=== PATIENT | male | born 1950 | race Caucasian/White ===

== ENCOUNTER 2017-06-28 17:39 | Inpatient (IN) | payer BC, MEDICARE ==
[~2017-06-28] VITALS: Ht 180.3 cm; Wt 108.8 kg
[2017-06-28 17:44] VITALS: BP 117/88
[2017-06-28] MEDS ORDERED: AMARYL2 MG PO (17:53)
[2017-06-28] MEDS ORDERED: GLUCOPHAGE XR500 MG PO (17:53)
[2017-06-28] MEDS ORDERED: PRAVACHOL20 MG PO (17:53)
[2017-06-28] MEDS ORDERED: MINOCYCLINE HC100 MG PO (17:54)
[2017-06-28] MEDS ORDERED: LEVEMIR SUBQ (17:54)
[2017-06-28 18:10] LABS: ABSOLUTE BASOPHILS 0.1 thou/uL (0.0-0.2); ABSOLUTE EOSINOPHILS 0.1 thou/uL (0.0-0.7); ABSOLUTE LYMPHOCYTES 4.1 thou/uL (0.8-5.3); ABSOLUTE MONOCYTES 0.6 thou/uL (0.0-1.2); BASOPHILS 0.9 %; EOSINOPHILS 1.4 %; HEMATOCRIT 43.8 % (42.0-52.0); HEMOGLOBIN 14.9 gm/dL (14.0-18.0); LYMPHOCYTES 41.5 %; MCH 30.8 pg (26.0-34.0); MCV 90.5 fL (80.0-100.0); MONOCYTES 6.3 %; MPV 8.3 fl. (7.2-11.1); NUCLEATED RBCS 0 /100WBC; PLATELET COUNT* 220 thou/uL (150-400); POLYS 49.9 %; RBC 4.84 mil/uL (4.50-6.00); RDW-CV 13.9 % (10.5-14.5)
[2017-06-28 18:19] LABS: APTT 27.9 Seconds (25.0-31.3); PROTIME 10.2 Seconds (9.20-11.50)
[2017-06-28 18:23] LABS: CALCIUM 9.5 mg/dL (8.5-10.1); CREATININE 0.9 mg/dL (0.6-1.3)
[2017-06-28 18:43] LABS: TOTAL BILIRUBIN 0.7 mg/dL (<0.1-1.0)
[2017-06-28 18:44] LABS: TOTAL PROTEIN 8.1 g/dL (6.4-8.2)
[2017-06-28 18:59] LABS: TROPONIN-I LEVEL 0.11 ng/mL (<0.06)
[2017-06-28 19:04] LABS: CK-MB MASS 1.2 ng/mL (<0.5-3.6)
[2017-06-28 19:57] VITALS: BP 112/73
[2017-06-28 20:30] VITALS: BP 131/74
[2017-06-28 23:56] LABS: URINE BILIRUBIN NEGATIVE (Negative); URINE BLOOD NEGATIVE (Negative); URINE CLARITY CLEAR; URINE COLOR YELLOW; URINE GLUCOSE-RANDOM 2+ (Negative); URINE KETONES NEGATIVE (Negative); URINE LEUKOCYTES-REFLEX NEGATIVE (Negative); URINE NITRITE-REFLEX NEGATIVE (Negative); URINE PROTEIN NEGATIVE (Negative); URINE SPECIFIC GRAVITY 1.015 (1.005-1.030); URINE UROBILINOGEN 0.2 E.U./dl (0.2-1.0)
[2017-06-29] VITALS: BP 111/60
--- NOTE | 2017-06-29 03:16 | NUR ---
RECEIVED REPORT FROM ADOPTION SERVICES MANAGER, JAMIE AT 1948. PT ARRIVED VIA GURNEY AT 2015. PT AAOX4, SPOUSE AT BEDSIDE, PT ORIENTED TO ROOM AND CALL LIGHT. NIH SCORE 0. PASSED BEDSIDE SWALLOW STUDY. NURSING ASSESSMENT COMPLETED, PRN ACETAMINOPHEN ADMINISTERED X1 FOR HEADACHE. PT WEARING SCD'S, TELE MONITOR ON, TRACING SINUS RHYTHM/SINUS TACHY IN THE LOW 90'S TO LOW 100'S. VOICED NO CONCERNS THIS SHIFT. BED ALARM ON FOR PATIENT SAFETY, CALL LIGHT WITHIN REACH.
[2017-06-29 04:00] VITALS: BP 106/61
[2017-06-29 05:39] LABS: ABSOLUTE BASOPHILS 0.1 thou/uL (0.0-0.2); ABSOLUTE EOSINOPHILS 0.1 thou/uL (0.0-0.7); ABSOLUTE LYMPHOCYTES 2.9 thou/uL (0.8-5.3); ABSOLUTE MONOCYTES 0.6 thou/uL (0.0-1.2); ABSOLUTE NEUTROPHILS 3.3 thou/uL (1.6-8.1); BASOPHILS 1.2 %; EOSINOPHILS 1.3 %; HEMATOCRIT 41.1 % (42.0-52.0); HEMOGLOBIN 13.7 gm/dL (14.0-18.0); LYMPHOCYTES 41.3 %; MCH 30.4 pg (26.0-34.0); MCHC 33.3 g/dL (28.0-37.0); MCV 91.2 fL (80.0-100.0); MONOCYTES 9.1 %; MPV 8.3 fl. (7.2-11.1); NUCLEATED RBCS 0 /100WBC; PLATELET COUNT* 201 thou/uL (150-400); POLYS 47.1 %; RDW-CV 14.2 % (10.5-14.5)
[2017-06-29 05:58] LABS: CALCIUM 9.1 mg/dL (8.5-10.1); POTASSIUM 4.1 mmol/L (3.5-5.1)
[2017-06-29 06:15] LABS: CHOLESTEROL 143 mg/dL (<200); HDL CHOLESTEROL 28 mg/dL (>40); LDL CHOLESTEROL 88 mg/dL (<100); SERUM ASSESSMENT Clear; TC:HDL 5.1 Ratio (Not establshd); TRIGLYCERIDE 136 mg/dL (<150); VLDL 27 mg/dL (<40)
[2017-06-29 08:07] VITALS: BP 119/74
--- NOTE | 2017-06-29 09:38 | EKG ---
[place] [address] ELECTROCARDIOGRAM REPORT Name: Timothy KOWALSKI Room: [place] [address] ADM IN .R.#: [id number] Admission: 06/28/17 Attend Phys: Fady Toledo MD Discharge: Date of : 52 Report #: [id number] THIS REPORT FOR: //name// [facility] ED Test Date: 2017-06-28 Test Time: 18:26:46 Pat Name: Timothy KOWALSKI Department: Room: [facility] Gender: Die Fitter: ASHLEY Winslow : 1950 Requested By: Markie Snowden Order Number: [id number] MD: Real Bustillos Measurements Intervals [place] Rate: 107 P: 58 VT: 139 QRS: -11 QRSD: 110 T: 58 QT: 346 QTc: 462 Interpretive Statements Sinus tachycardia RSR' in V1 or V2, right VCD or RVH Baseline wander in lead(s) III,V2 No previous ECG available for comparison Electronically Signed On 06-29-2017 9:37:53 CDT by Real Bustillos [email or web address] <ELECTRONICALLY SIGNED> By: Real Bustillos MD, FAC 06/29/17 0937 1826 1826 Real Bustillos MD, [facility] /EPI
--- NOTE | 2017-06-29 10:07 | NUR ---
ASSUMED CARE OF PT AT 0735. PT CONTINUES TO BE A&O X4 CALM AND COOPERATIVE. PT DENIES ANY C/O PAIN OR DISTRESS, VSS ON ROOM AIR. PT UP WITH SBA AND HIS GAIT IS STABLE WITHOUT ASSISTIVE DEVICES. PT ATE BREAKFAST WITHOUT ISSUE, CONSUMING GREATER THAN 90% OF THE MEAL. PT HAS BEEN TRACING NSR ON THE MONITOR. PT CURRENTLY OFF THE UNIT FOR IMAGING. NURSING WILL CONTINUE TO MONITOR.
--- NOTE | 2017-06-29 10:45 | NUR ---
REPORT GIVEN ASSUMED PATIENT CARE
--- NOTE | 2017-06-29 11:15 | NUR ---
MET WITH PT TO DISCUSS HOME SITUATION/DC PLANNING. PT LIVES WITH . HE IS NORMALLY INDEPENDENT AND ACTIVE. USES NO EQUIPMENT AND HASN'T HAD HH. HE STATES HE WATCHES HIS 3 GRANDCHILDREN AND DRIVES ONE TO PRESCHOOL. PT IS DIABETIC AND TAKES INSULIN BUT ADMITS NOT CHECKING HIS FSBG REGULARLY. STATES HE HAS A FAIRLY NEW METER BUT DOESN'T USE IT. HE PLANS TO START. OFFERED SOME UPDATED EDUCATION AND PT WAS OPEN TO THAT. ASKED ERIC HARRINGTON TO PROVIDE. PT PLANS TO RETURN HOME AT [place]. DENIES OTHER NEEDS. HAS AN APPT WITH A NEW UPHOLSTERER APPRENTICE AT [facility] COMING UP. ENCOURAGED HIM TO CHECK FSBG AND KEEP RECORD TO TAKE WITH HIM TO APPT.
[2017-06-29 11:45] VITALS: BP 121/65
[2017-06-29 15:29] VITALS: BP 111/72
--- NOTE | 2017-06-29 16:20 | 2DMMODE ---
[place] [address] 2 D/M-MODE ECHOCARDIOGRAM Name: GABRIELLE KOWALSKI Room: [facility] ADM IN [facility]#: [id number] Admission: 06/28/17 Attend Phys: Fady Toledo, Discharge: Date of : 52 Date of Service: 06/29/17 1620 Report #: [id number] THIS REPORT FOR: //name// APPROVED REPORT Study performed: 06/29/2017 15:01:26 EXAM: Comprehensive 2D, Doppler, and color-flow Echocardiogram Patient Location: In-Patient Room #: [facility] Status: routine BSA: 2.34 HR: 93 bpm BP: 106/61 mmHg Rhythm: NSR Other Information Study Quality: Good Indications CVA/TIA Echo Enhancing Agent Indication: Rule out Shunt Agent(s) / Amount(s) Used: Agitated Saline 10 cc 2D Dimensions LVEF(%): 47.06 (>50%) IVSd: 10.86 (7-11mm) LVOT Diam: 20.58 (18-24mm) LVDd: 43.66 mm PWd: 11.58 (7-11mm) Ascending Ao: 30.73 (22-36mm) LVDs: 33.44 (25-40mm) Aortic Root: 33.56 mm Feliz's LVEF: 47.06 % Volumes Left Atrial Volume (Systole) LA ESV Index: 17.20 mL/m2 Aortic Valve AoV Peak Mookie.: 1.63 m/s AO Peak Gr.: 10.57 mmHg LVOT Max P.56 mmHg AO Mean Gr.: 5.61 mmHg LVOT Mean P.82 mmHg LVOT Max V: 0.94 m/s AO V2 VTI: 25.54 cm LVOT Mean V: 0.62 m/[place] [address] 2 D/M-MODE ECHOCARDIOGRAM Name: GABRIELLE KOWALSKI Room: [place] [address] ADM IN .R.#: [id number] Admission: 06/28/17 Attend Phys: Fady Toledo, Discharge: Date of : 52 Date of Service: 06/29/17 1620 Report #: [id number] MAYRA (VTI): 2.35 cm2 LVOT V1 VTI: 18.01 cm Mitral Valve E/A Ratio: 0.77 MV Decel. Time: 205.12 ms MV E Max Mookie.: 0.69 m/s MV PHT: 59.49 ms MVA (PHT): 3.70 cm2 TDI E/Lateral E': 6.27 E/Medial E': 5.75 Medial E' Mookie.: 0.12 m/s Lateral E' Mookie.: 0.11 m/s Pulmonary Valve PV Peak Mookie.: 1.67 m/s PV Peak Gr.: 11.13 mmHg Left Ventricle The left ventricle is normal size. There is normal LV segmental wall motion. There is normal left ventricular wall thickness. Left ventricular systolic function is normal. The left ventricular ejection fraction is within the normal range. No left ventricle thrombus noted on this study. LVEF is 55-60%. Grade I - abnormal relaxation pattern. Right Ventricle The right ventricle is normal size. The right ventricular systolic function is normal. Atria The left atrium size is normal. Interatrial septum is intact without evidence of ASD or PFO.Negative bubble study. The right atrium size is normal. Aortic Valve The aortic valve is normal in structure. No aortic regurgitation is present. There is no aortic valvular stenosis. Mitral Valve The mitral valve is normal in structure. There is no mitral valve regurgitation noted. No evidence of mitral valve stenosis. Tricuspid Valve The tricuspid valve is normal in structure. There is no tricuspid valve reg[place] [address] 2 D/M-MODE ECHOCARDIOGRAM Name: GABRIELLE KOWALSKI Room: [place] [address] ADM IN M.R.#: [id number] Admission: 06/28/17 Attend Phys: Fady Toledo, Discharge: Date of : 52 Date of Service: 06/29/17 1620 Report #: [id number] Pulmonic Valve The pulmonary valve is normal in structure. There is no pulmonic valvular regurgitation. Great Vessels The aortic root is normal in size. IVC is normal in size and collapses with >50% inspiration Pericardium There is no pericardial effusion. <Conclusion> LVEF is 55-60%. Grade I - abnormal relaxation pattern. There is normal LV segmental wall motion. Interatrial septum is intact without evidence of ASD or PFO.Negative bubble study. No left ventricle thrombus noted on this study. There is no aortic valvular stenosis. No aortic regurgitation is present. No evidence of mitral valve stenosis. There is no mitral valve regurgitation noted. <ELECTRONICALLY SIGNED> By: Alek Luther MD, FACC 06/29/171619 19 19 Alek Luther MD, FACC /INF
--- NOTE | 2017-06-29 19:49 | NUR ---
PATIENT SITTING UP IN CHAIR WATCHING TV REMAINS A AND O X 4 SR RA GOOD APPETITE LAST BM REPORTED T-1 UP WITH STANDBY IV R AC SL NO C/O PAIN NIHH Q4H 0 ACCUCHECKS 196, 251, 192 NEURO CONS CALL LIGHT IN REACH AND INSTRUCTION GIVEN AND FOLLOWED
[2017-06-29 20:00] VITALS: BP 126/78
[2017-06-30] VITALS: BP 116/76
[2017-06-30 02:11] LABS: GLYCOHEMOGLOBIN (HGB A1C) 8.3 % (4.8-5.6)
[2017-06-30 04:00] VITALS: BP 118/72
--- NOTE | 2017-06-30 06:06 | NUR ---
ASSUMED CARE OF PT AT 1930, PT VOICED NO CONCERNS THIS SHIFT, NO EPISODES OF CONFUSION THIS SHIFT, AAOX4, PT TRACING SINUS RHYTHM THIS SHIFT, HOURLY ROUNDING COMPLETED, CALL LIGHT WITHIN REACH. FALL PRECAUTIONS IN PLACE. PT ASSISSTED WITH SHOWER THIS SHIFT, AMBULATED HALLWAY WITH NO SOA. CALL LIGHT WITHIN REACH.
[2017-06-30 07:58] VITALS: BP 129/70
--- NOTE | 2017-06-30 10:22 | NUR ---
ASSUMED CARE OF PT AT 0730. PT SITTING UP IN THE CHAIR WAITING FOR BREAKFAST. PT ALREADY TOOK SHOWER AND AMBULATED IN HALLWAY THIS AM. PT A&0X4. DENIES ANY PAIN OR SHORTNESS OF BREATH AT THIS TIME. NIH COMPLETED. PT SCORING 0. REFER TO CHARTING. PT TRACING SR ON THE BATT MACHINE OPERATOR. ON RA SAT UPPER 90'S. PT UP SBA TO BATHROOM. AT BEDSIDE. PT GIVEN EDUCATION REGARDING DIABETIC TEACHING, USE OF GLUCOSE MONITOR AND INSULIN INJECTIONS. PT GOAL FOR TODAY IS TO INCREASE ACTIVITY AND POSSIBLE DISCHARGE HOME THIS AFTERNOON. AM ASSESSMENT CHARTED. MEDICATIONS PER JUN. PT REPOSITIONS SELF. HOURLY ROUNDING OBSERVED. BED IN LOW POSITION. CALL LIGHT WITHIN REACH. WILL CONTINUE PLAN OF CARE.
[2017-06-30 11:30] VITALS: BP 114/72
[2017-06-30 12:01] VITALS: BP 129/70
[2017-06-30] MEDS ORDERED: ASPIRIN325 PO (12:47)
--- NOTE | 2017-06-30 14:20 | NUR ---
DISCHARGE ORDERS RECEIVED. DISCHARGE INSTRUCTIONS, CARE NOTES AND FOLLOW UP APPTS GIVEN TO PT. PT COMMUNICATES UNDERSTANDING OF DISCHARGE TEACHING. IV AND MOLD SANDER REMOVED. PT DISCHARGED WITH ALL BELONGINGS AND PAPERWORK VIA WHEELCHAIR WITH [employer] TO SPOUSE OWN PERSONAL VEHICLE.
--- NOTE | 2017-07-06 19:10 | CON ---
[address] [address] CONSULTATION Name: GABRIELLE KOWALSKI Room: [address] IN M.R.#: [id number] Admission: 06/28/17 Attend Phys: Fady Toledo MD Discharge: 06/30/17 Date of : 52 Report #: [id number] THIS REPORT FOR: //name// CC: Fady Hadley DATE OF SERVICE: 06/29/2017 HISTORY OF PRESENT ILLNESS: This is a 67-year-old male patient who was evaluated by me for a few episodes where he does not know what he is telling and he becomes confused. Sometime he has made wrong statements and the other time; he did not know how to check his blood sugar. Episodes come spontaneously without any trauma and his confusion is severe during this episode. He has no associated headache with it. He has not checked his blood sugar during these episodes and he does not know what his blood sugar is, but after it is over, it is about 160. REVIEW OF SYSTEMS: Positive for diabetes, gallbladder surgery in the past. Presently, he is not having any new eye, ENT, cardiac, respiratory, GI, , musculoskeletal, constitutional, dermatological, hematological, psychiatric, throat, allergy symptoms. He does have baseline diabetes. PAST MEDICAL HISTORY: Negative for stroke or this kind of symptom. FAMILY HISTORY: Negative for early age stroke. SOCIAL HISTORY: He does not drink any alcohol, but does have a history of smoking. PHYSICAL EXAMINATION: Indicate he is alert, responsive, oriented. His speech, concentration, fund of knowledge and memory is at his baseline. Cranial nerve examination 212 is unremarkable. His strength, sensation, reflexes and tone is symmetrical in all 4 extremities. He has no cerebellar sign or papilledema. He is reasonably well-developed individual who does not have any dysmorphic features of eyes, ears and face. His vision and hearing looks adequate. He has no thyroid mass. He has no edema, cyanosis or jaundice. His pulses are somewhat difficult to feel. His cardiac examination showed unremarkable heart sounds and rhythm. No respiratory difficulty or rhonchi on either side. Blood pressure is 106/61, respirations 18, pulse is 94, temperature is 97.4. LABORATORY DATA: His white count is 7. His sodium is normal and his troponin was trace high. His LDL is 88. He has started taking baby aspirin recently. He did have a CT scan of the head. He is scheduled to have an MRI of the brain, MRA of the head and neck. IMPRESSION: It is not clear what the etiology of his symptoms [place] [address] CONSULTATION Name: GABRIELLE KOWALSKI Room: [address] IN M.R.#: [id number] Admission: 06/28/17 Attend Phys: Fady Toledo MD Discharge: 06/30/17 Date of : 52 Report #: [id number] to check his blood sugar the next time this happened to make sure he does not have any hypo or hyperglycemia. I would like to exclude the possibility of TIAs or ischemic disease in this patient. Seizures are unlikely, but will do an EEG to exclude that. His CT scan has shown some abnormality of the C1 area, but that should be well evaluated by MRI of the brain and see what does that show. RECOMMENDATIONS: 1. MRI of the brain. 2. MRA of the head. 3. MRA of the carotid. 4. EEG. 5. TSH and vitamin B12. 6. I agree with aspirin for the time being and see if we need to change that depending upon the workup. His rest of the workup will depend upon the outcome of these testing and will follow this patient and check on that workup. <ELECTRONICALLY SIGNED> By: Reinier Perez MD 07/06/17 1910 0911 0939Reinier Perez MD /nt
--- NOTE | 2017-07-06 19:10 | EEG ---
[address] [address] EEG STUDY REPORT Name: MEGHANAGABRIELLE JUAREZ Room: [address] IN M.R.#: [id number] Admission: 06/28/17 Attend Phys: Fady Toledo MD Discharge: 06/30/17 Date of : 52 Report #: [id number] THIS REPORT FOR: //name// CC: Fady Hadley DATE OF SERVICE: 06/29/2017 This patient is being evaluated for the possibility of TIA and the patient had some altered mental status. Background activity in this patient's EEG is about 8 Hz and 30 microvolt. It is intermixed with theta range slowing on both sides. Photic stimulation is unremarkable. The patient went to sleep that was associated with bilaterally symmetrical sleep spindle and vertex sharp waves. Throughout the record, no active epileptiform activity was noticed. IMPRESSION: This patient's EEG is intermixed with some mild intermixed theta range slowing. That is a nonspecific abnormality, which can occur with encephalopathy, effect of psychotropic medication, dementia, etc. Clinical correlation is recommended. <ELECTRONICALLY SIGNED> By: Reinier Perez MD 07/06/17 1910 1016 1103Pgeeta Perez MD /nt
[2017-08-24] MEDS ORDERED: LIPITOR80 MG PO (10:37)
[2017-08-24] MEDS ORDERED: ASPIR 8181 MG PO (10:38)
[2017-08-24] MEDS ORDERED: B COMPLEX1 EACH PO (10:38)
== END 2017-06-30 14:25 | disposition home or self-care (01) | DRG 66 ==
LOC: M.ERS 17:39 → M.TBA-ER 18:32 → M.2W 18:32
PROVIDERS: Family Medicine; ADMIT Internal Medicine
DX: I63.9 Cerebral infarction, unspecified (principal); F17.210 Nicotine dependence, cigarettes, uncomplicated; E11.9 Type 2 diabetes mellitus without complications; Z79.82 Long term (current) use of aspirin; Z79.4 Long term (current) use of insulin; Z79.899 Other long term (current) drug therapy; Z79.84 Long term (current) use of oral hypoglycemic drugs

== ENCOUNTER → 2017-07-18 | Outpatient (CLI) | payer BC, MEDICARE ==
[~2017-07-18] MED LIST: AMARYL2 MG PO; ASPIR 8181 MG PO; ASPIRIN325 PO; B COMPLEX1 EACH PO; CLOPIDOGREL75 MG PO; GLUCOPHAGE XR500 MG PO; LEVEMIR SUBQ; LIPITOR80 MG PO; MINOCYCLINE HC100 MG PO; PRAVACHOL20 MG PO
== END ==
LOC: M.LAB 13:42
PROVIDERS: Psychiatry & Neurology Neuromuscular Medicine
DX: I63.9 Cerebral infarction, unspecified (principal); E78.00 Pure hypercholesterolemia, unspecified; Z87.891 Personal history of nicotine dependence

== ENCOUNTER 2017-07-31 09:00 | Inpatient (IN) | payer BC, MEDICARE ==
[~2017-07-31] VITALS: Ht 180.3 cm; Wt 105.1 kg
[~2017-07-31 09:00] MED LIST changes: -ASPIR 8181 MG PO; -B COMPLEX1 EACH PO; -CLOPIDOGREL75 MG PO; -LIPITOR80 MG PO
[2017-07-31 09:32] LABS: ABSOLUTE BASOPHILS 0.1 thou/uL (0.0-0.2); ABSOLUTE EOSINOPHILS 0.1 thou/uL (0.0-0.7); ABSOLUTE LYMPHOCYTES 3.2 thou/uL (0.8-5.3); ABSOLUTE MONOCYTES 0.7 thou/uL (0.0-1.2); ABSOLUTE NEUTROPHILS 4.5 thou/uL (1.6-8.1); BASOPHILS 0.6 %; EOSINOPHILS 1.1 %; HEMATOCRIT 43.6 % (42.0-52.0); HEMOGLOBIN 14.6 gm/dL (14.0-18.0); LYMPHOCYTES 37.2 %; MCH 30.5 pg (26.0-34.0); MCHC 33.5 g/dL (28.0-37.0); MCV 91.1 fL (80.0-100.0); MONOCYTES 8.2 %; MPV 8.6 fl. (7.2-11.1); NUCLEATED RBCS 0 /100WBC; PLATELET COUNT* 225 thou/uL (150-400); POLYS 52.9 %; RBC 4.79 mil/uL (4.50-6.00); RDW-CV 13.6 % (10.5-14.5); WBC 8.5 thou/uL (4.0-11.0)
[2017-07-31 09:33] VITALS: BP 150/90
[2017-07-31 09:37] LABS: ANION GAP 7 mmol/L (7-16); BUN 15 mg/dL (7-18); CALCIUM 9.5 mg/dL (8.5-10.1); CHLORIDE 105 mmol/L (98-107); CO2 28 mmol/L (21-32); CREATININE 1.1 mg/dL (0.6-1.3); GLUCOSE 161 mg/dL (70-99); SODIUM 140 mmol/L (136-145)
[2017-07-31 09:44] LABS: ALKALINE PHOSPHATASE 80 U/L (46-116); SGOT 29 U/L (15-37); SGPT 55 U/L (30-65); TOTAL BILIRUBIN 0.5 mg/dL (<0.1-1.0); TOTAL PROTEIN 7.9 g/dL (6.4-8.2); TROPONIN-I LEVEL <0.06 ng/mL (<0.06)
[2017-07-31 09:47] LABS: POC CA IONIZED 4.6 mg/dL (4.5-5.3); POC HEMOGLOBIN 13.9 g/dL (12.0-17.0); POC POTASSIUM 4.1 mmol/L (3.5-4.9)
[2017-07-31 09:47] LABS: POC CA IONIZED 4.5 mg/dL (4.5-5.3); POC POTASSIUM 4.2 mmol/L (3.5-4.9)
--- NOTE | 2017-07-31 10:14 | NUR ---
SEE CODE STROKE FLOW SHEET FOR FURTHER DOCUMENTATION
[2017-07-31 10:17] LABS: APTT 28.5 Seconds (25.0-31.3); INR 1.1; PROTIME 10.5 Seconds (9.20-11.50)
[2017-07-31 12:13] LABS: URINE BILIRUBIN NEGATIVE (Negative); URINE BLOOD NEGATIVE (Negative); URINE CLARITY CLEAR; URINE COLOR YELLOW; URINE GLUCOSE-RANDOM NEGATIVE (Negative); URINE KETONES NEGATIVE (Negative); URINE LEUKOCYTES NEGATIVE (Negative); URINE NITRITE NEGATIVE (Negative); URINE PROTEIN NEGATIVE (Negative); URINE SPECIFIC GRAVITY 1.015 (1.005-1.030); URINE UROBILINOGEN 0.2 E.U./dl (0.2-1.0)
[2017-07-31 15:08] VITALS: BP 122/71
[2017-07-31 15:30] VITALS: BP 130/80
--- NOTE | 2017-07-31 16:01 | EKG ---
[place] [address] ELECTROCARDIOGRAM REPORT Name: GABRIELLE KOWALSKI Room: [address] ADM IN M.R.#: [id number] Admission: 07/31/17 Attend Phys: Corey Lima MD Discharge: Date of : 52 Report #: [id number] THIS REPORT FOR: //name// [facility] ED Test Date: 2017-07-31 Test Time: 09:39:13 Pat Name: GABRIELLE KOWALSKI Department: Room: [facility] Gender: Database Reporting Consultant: Goldy DOMINGUEZ : 1950 Requested By: Rocco Britton Order Number: [id number] MD: Alek Luther Measurements Intervals [place] Rate: 111 P: 33 RI: 155 QRS: -17 QRSD: 110 T: 57 QT: 344 QTc: 468 Interpretive Statements Sinus tachycardia Borderline left axis deviation RSR' in V1 or V2, probably normal variant Compared to ECG 06/28/2017 18:26:46 Right ventricular hypertrophy no longer present Electronically Signed On 07-31-2017 16:01:10 CDT by Alek Luther [email or web address] <ELECTRONICALLY SIGNED> By: Alek Luther MD, [facility] 07/31/17 1601 0939 0939 Alek Luther MD, [facility] /EPI
--- NOTE | 2017-07-31 18:23 | NUR ---
PT ARRIVED TO ROOM 213 AT APPROX 1530, PT ORIENTED TO ROOM AND STAFF, ST ON TELE MONITOR, VSS, NIH=0. PT WALKED WITH PT IN [place]OLD[place], SAFE FOR AMBULATION BY SELF.ADMISSION HX AND ASSESMENT DONE CHARTED. PT SEEN BY NEUROLOGY, PT OFF UNIT AT THIS TIME FOR MRI. WILL CONTINUE WITH PLAN OF CARE.
[2017-07-31 20:00] VITALS: BP 115/66
--- NOTE | 2017-07-31 23:00 | NUR ---
RECIEVED REPORT AND ASSUMED CARE OF PATIENT AT 1930. PARTS FABRICATOR IN PLACE TRACING SR. ASSESSMENT AND VITALS COMPLETED CHARTED, VSS. PATIENT A&OX4, FORGETFUL AT TIMES. NIH COMPLETED-0. PATIENT'S GOAL IS TO HAVE NO CHANGE IN NIH AND REMAIN WITHOUT NEUROLOGICAL DEFICITS. CALL LIGHT WITHIN REACH
[2017-08-01] VITALS: BP 114/76
[2017-08-01 03:57] VITALS: BP 106/61
[2017-08-01 04:08] LABS: GLYCOHEMOGLOBIN (HGB A1C) 7.5 % (4.8-5.6)
--- NOTE | 2017-08-01 05:16 | NUR ---
PATIENT PROGRESSING TOWARDS GOALS: NIH REMAINS 0. PATIENT UP INDEPENDENTLY WITH NO DIFFICULTIES. PATIENT REMAINS ON ROOM AIR WITH O2 SATS WNL. VSS. PATIENT FORGETFUL AT TIMES BUT EASILY REORIENTED. HOURLY ROUNDING OSBERVED. CALL LIGHT WITHIN REACH
[2017-08-01 06:09] LABS: CHOLESTEROL 135 mg/dL (<200); HDL CHOLESTEROL 27 mg/dL (>40); LDL CHOLESTEROL 89 mg/dL (<100); TRIGLYCERIDE 96 mg/dL (<150); VLDL 19 mg/dL (<40)
[2017-08-01 06:13] LABS: SERUM ASSESSMENT Clear
[2017-08-01 07:40] VITALS: BP 119/77
--- NOTE | 2017-08-01 10:00 | NUR ---
ASSUMED PT CARE AT 0730, NIH=0 THIS AM, PTS VSS, C/O BARNETT, NO OTHER C/O PAIN. ASSESMENT DONE CHARTED. PT UPDATED ON PLAN OF CARE, WILL CONTINUE WITH PLAN OF CARE
--- NOTE | 2017-08-01 10:50 | NUR ---
Electric Razor Assembler: met with patient this am, reinforced stroke education. patient planning to discharge later today.
--- NOTE | 2017-08-01 11:33 | NUR ---
NO OT AT THIS TIME, PT SCREEN COMPLETED AND PT ABLE TO COMPLETE BADLS INDEP, NO LOB OR DISPLAY OF IMPAIRED SAFETY
--- NOTE | 2017-08-01 11:51 | NUR ---
CM SPOKE TO THE PATIENT TO DISCUSS HOME SITUATION, DISCHARGE PLANNING, AND TO INFORM OF THE ROLE OF CM. PATIENT ALERT, ORIENTED, AND INDPENDENT WITH ADL'S. PATIENT RESIDES AT HOME WITH SPOUSE. PATIENT NORMALLY INDENDENT AND ACTIVE AND INFORMS THAT HE HOPES TO D/C HOEM TODAY. PATIENT USES 0 DME AND HAS NO HX OF HH. CM WILL REMAIN AVAILABLE TO ASSIST AND FOLLOW NEEDED.
[2017-08-01 12:02] VITALS: BP 112/68
[2017-08-01] MEDS ORDERED: LIPITOR80 MG PO (15:01)
[2017-08-01] MEDS ORDERED: CLOPIDOGREL75 MG PO (15:01)
[2017-08-01 15:48] VITALS: BP 112/68
--- NOTE | 2017-08-01 16:49 | NUR ---
PT SPOKE TO NEUROLOGIST, NO NEW TESTS ORDERED, OK FOR DISCHARGE. RECIEVED DISCHARGE ORDERS FROM DR SINCLAIR. PT EDUCATED ON NEW MEDS/FOLLOW UP APPOINTMENTS. PT LEFT UNIT WITH AT APPROX 1630
--- NOTE | 2017-08-09 14:26 | CON ---
[address] [address] CONSULTATION Name: GABRIELLE KOWALSKI Room: [address] IN M.R.#: [id number] Admission: 07/31/17 Attend Phys: Corey Lima MD Discharge: 08/01/17 Date of : 52 Report #: [id number] THIS REPORT FOR: //name// CC: Corey Perez REASON FOR CONSULTATION: Evaluation and recommendations regarding post-acute rehabilitation in a 67-year-old male with known history of microvascular right parietal CVA, who did have sudden onset right hand tingling and slurred speech with aphasia. He was admitted on 07/31/2017. He has been seen by physical and occupational therapy as well as speech and language pathology. He does live at home with his . He was independent with activities of daily living. Currently, his physical therapy needs are independent. Occupational therapy needs show no data at this time. Speech and language pathology show no data at this time. It is suspected he had a TIA on superimposed subacute right cerebrovascular accident about one month ago. The patient does have a history of smoking and diabetes. He has not been very compliant with checking his blood sugars. ALLERGIES: No known drug allergies. Laboratories are reviewed. Imaging reviewed. MEDICATIONS: Reviewed and are available in the MAR. PAST MEDICAL AND SURGICAL HISTORY: Rosacea, heel spurs, tendinitis, gallbladder removed in 1991, type 2 diabetes, right parietal CVA, obesity. FAMILY HISTORY: Significant family history of stroke. SOCIAL HISTORY: No illicit drug use. No significant alcohol use. He did quit smoking about 1 year ago. REVIEW OF SYSTEMS: A 14-point review of systems was done and is negative except as mentioned in HPI, specifically no fever, chest pain, shortness of breath, abdominal pain or distention. PHYSICAL EXAMINATION: GENERAL: Alert, oriented, in no apparent distress. VITAL SIGNS: Reviewed and are stable. HEENT: Atraumatic, normocephalic. Pupils are equal, round, reactive. ABDOMEN: Soft, nontender, nondistended. NEUROLOGIC: Cranial nerves 2-12 are grossly intact. No focal neuro deficits. ASSESSMENT: 1. [place] [address] CONSULTATION Name: GABRIELLE KOWALSKI Room: [address] IN [facility]#: [id number] Admission: 07/31/17 Attend Phys: Corey Lima MD Discharge: 08/01/17 Date of : 52 Report #: [id number] 2. Diabetes type 2 with microvascular DREDGE ENGINEER changes. 3. History of subacute right parietal cerebrovascular accident. 4. Carotid plaquing. 5. Obesity. 6. Hyperlipidemia. PLAN: Currently, it seems as if most of his deficits have resolved. We will continue to follow during acute inpatient stay. <ELECTRONICALLY SIGNED> By: Valerie Stevenson DO 08/09/17 1426 1303 1832Kelnarendra Stevenson DO /ha
[2017-08-24] MEDS ORDERED: LIPITOR80 MG PO (10:37)
[2017-08-24] MEDS ORDERED: B COMPLEX1 EACH PO (10:38)
[2017-08-24] MEDS ORDERED: ASPIR 8181 MG PO (10:38)
== END 2017-08-01 16:43 | disposition home or self-care (01) | DRG 66 ==
LOC: M.ERS 09:00 → M.2W 10:39 → M.TBA-ER 10:39 → M.2W 15:18
PROVIDERS: Emergency Medicine Emergency Medical Services; ADMIT Internal Medicine
DX: I63.9 Cerebral infarction, unspecified (principal); R47.1 Dysarthria and anarthria; E78.5 Hyperlipidemia, unspecified; E11.51 Type 2 diabetes mellitus with diabetic peripheral angiopathy without gangrene; E66.9 Obesity, unspecified; Z68.32 Body mass index [BMI] 32.0-32.9, adult; Z90.49 Acquired absence of other specified parts of digestive tract; Z87.891 Personal history of nicotine dependence; Z79.4 Long term (current) use of insulin; Z79.82 Long term (current) use of aspirin; Z79.899 Other long term (current) drug therapy; Z86.73 Personal history of transient ischemic attack (TIA), and cerebral infarction without residual deficits

== ENCOUNTER → 2017-08-24 | Outpatient (CLI) | payer MEDICARE, BC ==
[2017-08-24] VITALS (8 sets, daily range): BP systolic 114–162; BP diastolic 68–822
[~2017-08-24] MED LIST changes: +ASPIR 8181 MG PO; +B COMPLEX1 EACH PO; +CLOPIDOGREL75 MG PO; +LIPITOR80 MG PO
--- NOTE | 2017-08-24 18:29 | TEE ---
[place] [address] TRANSESOPHAGEAL ECHOCARDIOGRAM Name: GABRIELLE KOWALSKI Room: [facility]#: [id number] Admission: 08/24/17 Attend Phys: Raymond Tolbert, Discharge: Date of : 52 Date of Service: 08/24/17 1828 Report #: [id number] THIS REPORT FOR: //name// APPROVED REPORT Study performed: 08/24/2017 11:55:28 EXAM: Transesophageal Echocardiogram Patient Location: Out-Patient Status: routine BSA: 2.24 HR: 103 bpm BP: 157/87 mmHg Rhythm: NSR Other Information Study Quality: Good Indications CVA/TIA Echo Enhancing Agent Indication: Rule out Shunt Agent(s) / Amount(s) Used: Agitated Saline 10 cc Procedure After obtaining informed consent, patient underwent transesophageal echo in the [employer]. Type of Sedation : Conscious Sedation Sedation was administered by Rubina Cuenca RN. Sedation start time: 1153 Case end Time: 1209 Sedation was achieved intravenously with: Versed (3) Fentanyl (75) Transesophageal probe was inserted and advanced into esophagus without difficulty by Raymond Tolbert MD, FACC. Echo enhancement indication: R/O Septal defect. Echo enhancement agent administered: Agitated Saline The KENYA was performed without complications. Throughout the procedure, the blood pressure, pulse oximetry, cardiac rhythm, and rate were monitored. The patient tolerated the procedure without adverse effects. Recovery from conscious sedation was uneventful and vital signs were stable. Left Ventricle [address] [address] TRANSESOPHAGEAL ECHOCARDIOGRAM Name: GABRIELLE KOWALSKI Room: [facility]#: [id number] Admission: 08/24/17 Attend Phys: Raymond Tolbert, Discharge: Date of : 52 Date of Service: 08/24/17 1828 Report #: [id number] The left ventricle is normal size. There is normal LV segmental wall motion. There is normal left ventricular wall thickness. Left ventricular systolic function is normal. LVEF is 50-55%. Right Ventricle The right ventricle is normal size. The right ventricular systolic function is normal. Atria No thrombus is visualized in the left atrium or appendage. Interatrial septum is intact without evidence of ASD or PFO. The right atrium size is normal. Aortic Valve The aortic valve is normal in structure. No aortic regurgitation is present. There is no aortic valvular stenosis. Mitral Valve The mitral valve is normal in structure. Trace mitral regurgitation. No evidence of mitral valve stenosis. Tricuspid Valve The tricuspid valve is normal in structure. There is no tricuspid valve regurgitation noted. Pulmonic Valve The pulmonary valve is normal in structure. There is no pulmonic valvular regurgitation. Great Vessels The aortic root is normal in size. Pericardium There is no pericardial effusion. <Conclusion> The left ventricle is normal size. There is normal left ventricular wall thickness. Left ventricular systolic function is normal. LVEF is 50-55%. Trace mitral regurgitation. No thrombus is visualized [place] [address] TRANSESOPHAGEAL ECHOCARDIOGRAM Name: GABRIELLE KOWALSKI Room: [facility]#: [id number] Admission: 08/24/17 Attend Phys: Raymond Tolbert, Discharge: Date of : 52 Date of Service: 08/24/171827 Report #: [id number] appendage. Interatrial septum is intact without evidence of ASD or PFO. <ELECTRONICALLY SIGNED> By: Raymond Tolbert MD, FACC 08/24/171827 27 27 Raymond Tolbert MD, FACC /INF
--- NOTE | 2017-09-21 15:16 | CARD ---
[facility] [address] [place] [address] CARDIAC CATH REPORT Name: GABRIELLE KOWALSKI Room: [facility]#: [id number] Admission: 08/24/17 Attend Phys: Raymond Tolbert MD Discharge: Date of : 52 Report #: [id number] THIS REPORT FOR: //name// CC: Raymond Tolbert DATE OF SERVICE: 08/24/2017 PROCEDURE: Implantable loop recorder placement. INDICATION: Cryptogenic stroke. DESCRIPTION OF PROCEDURE: After informed consent was obtained, the patient was brought to the cardiac holding area. The area of the chest wall was prepped and draped in sterile fashion. Local anesthesia was achieved with 1% lidocaine. Next, an incision was made in the fourth intercostal space just left of sternum. Utilizing a dilator, a channel was made for the implantable loop recorder. Next, a [employer] BioMonitor 2-AF, model number 657131, serial number [id number] implantable loop recorder was placed without difficulty. The subcutaneous tissue was closed with an interrupted stitch of 2-0 Vicryl. Steri-Strips were placed across the skin incision. A sterile Telfa dressing was then covered with a Tegaderm. The patient tolerated the procedure well and without complication. IMPRESSION: 1. Cryptogenic stroke. 2. Placement of an implantable loop recorder for continuous rhythm monitoring. <ELECTRONICALLY SIGNED> By: Raymond Tolbert MD, [facility] 09/21/17 [id number] [place] [address] Leonel Tolbert MD, RAMONA /nt
== END | disposition home or self-care (01) ==
LOC: M.CL 10:11
DX: I34.0 Nonrheumatic mitral (valve) insufficiency (principal); I63.9 Cerebral infarction, unspecified; Z86.73 Personal history of transient ischemic attack (TIA), and cerebral infarction without residual deficits; Z79.01 Long term (current) use of anticoagulants; Z79.82 Long term (current) use of aspirin; Z79.899 Other long term (current) drug therapy; Z79.4 Long term (current) use of insulin